=== PATIENT | female | born 1975 | race Asian ===

== ENCOUNTER 2022-12-04 16:04 | Emergency (ER) | payer MEDICAID ==
[~2022-12-04] VITALS: Ht 165.1 cm; Wt 68.0 kg
[2022-12-04 16:25] VITALS: BP 153/81
[2022-12-04] MEDS ORDERED: SENN-215 MT (16:42)
[2022-12-04] MEDS ORDERED: CEPH500T MT (16:42)
[2022-12-04] MEDS ORDERED: NA P230E RC (21:16)
== END 2022-12-04 17:49 | disposition home or self-care (01) ==
LOC: ER 16:04
DX: K59.00 Constipation, unspecified (principal); E11.9 Type 2 diabetes mellitus without complications; I10 Essential (primary) hypertension
CPT/HCPCS: 99283

== ENCOUNTER 2022-12-04 17:31 | Emergency (ER) | payer MEDICAID ==
[~2022-12-04] VITALS: Ht 172.7 cm; Wt 55.0 kg
[~2022-12-04 17:31] MED LIST: CEPH500T MT; SENN-215 MT
[2022-12-04 17:47] VITALS: BP 158/89
[2022-12-04] MEDS ORDERED: NA P230E RC (21:16)
== END 2022-12-04 23:10 | disposition home or self-care (01) ==
LOC: ER 17:31
DX: K62.89 Other specified diseases of anus and rectum (principal); K59.00 Constipation, unspecified
CPT/HCPCS: 99281